=== PATIENT | male | born 1950 | race Two or more races ===

== ENCOUNTER 2023-06-17 08:53 | Emergency (ER) | payer BC, OTHER ==
[~2023-06-17] VITALS: Ht 170.2 cm; Wt 87.1 kg
[~2023-06-17 08:53] MED LIST: IBUP-2383 PO
[2023-06-17 09:00] VITALS: BP 125/72; TEMP 98.7
[2023-06-17] MEDS ORDERED: BENZONATATE 100 MG CAPSULE PO PRN (09:30)
[2023-06-17] MEDS ORDERED: BENZONATATE 100 MG CAPSULE PO ONE (09:35)
[2023-06-17] MEDS ORDERED: BENZ-13 PO (10:02)
[2023-06-17] MEDS ORDERED: ALBU6.7H9 INH (10:02)
[2023-06-17 10:11] VITALS: O2SAT 96
== END 2023-06-17 10:12 | disposition home or self-care (01) ==
LOC: ER 09:02
DX: R05.9 Cough, unspecified (principal); Z79.899 Other long term (current) drug therapy
CPT/HCPCS: 71045-TC

== ENCOUNTER 2023-10-21 14:53 | Emergency (ER) | payer BC ==
[~2023-10-21] VITALS: Ht 170.2 cm; Wt 87.5 kg
[~2023-10-21 14:53] MED LIST changes: +ALBU6.7H9 INH; +BENZ-13 PO
[2023-10-21] MEDS ORDERED: diphenhydrAMINE HCL 50 MG/ML VIAL ONE (15:24)
[2023-10-21] MEDS ORDERED: MECLIZINE HCL 25 MG TABLET ONE (15:25)
[2023-10-21] MEDS ORDERED: LORAZEPAM INJ 2 MG/ML VIAL ONE (15:25)
[2023-10-21] MEDS ORDERED: IV NS 0.9% 1,000 ML BAG IV ONE (15:30)
[2023-10-21] MEDS ORDERED: MECLIZINE HCL 12.5 MG TABLET PO ONE (15:30)
[2023-10-21] MEDS ORDERED: LORAZEPAM INJ 2 MG/ML VIAL IV ONE (15:30)
[2023-10-21] MEDS ORDERED: diphenhydrAMINE HCL 50 MG/ML VIAL IV ONE (15:30)
[2023-10-21 15:47] LABS: BASOPHILS # (AUTO) 0.1 K/uL (0.0-0.2); BASOPHILS % (AUTO) 0.9 % (0.0-2.0); EOSINOPHILS # (AUTO) 0.2 K/uL (0.0-0.7); EOSINOPHILS % (AUTO) 2.9 % (0.0-6.0); HEMATOCRIT 46 % (39-51); HEMOGLOBIN 15.4 g/dL (13.5-17.5); LYMPHOCYTES # (AUTO) 1.9 K/uL (0.8-4.8); LYMPHOCYTES % (AUTO) 25.4 % (20.0-44.0); MEAN CORPUSCULAR HEMOGLOBIN 30 PG (26.0-33.0); MEAN CORPUSCULAR HGB CONC 34 g/dl (31.0-36.0); MEAN CORPUSCULAR VOLUME 87 fL (80-96); MONOCYTES # (AUTO) 0.5 K/uL (0.1-1.30); MONOCYTES % (AUTO) 6.8 % (2.0-12.0); NEUTROPHILS # (AUTO) 4.7 K/uL (1.8-8.9); PLATELET COUNT (AUTO) 244 K/uL (150-450); RED BLOOD CELL COUNT(AUTO) 5.23 MIL/uL (4.5-6.0); RED CELL DISTRIBUTION WIDTH 13.4 % (11.5-15.0); WHITE BLOOD COUNT (AUTO) 7.4 K/uL (4.3-11.0)
[2023-10-21 16:03] LABS: CALCIUM, SERUM 9.4 mg/dL (8.5-10.1); CARBON DIOXIDE 27 mmol/L (21-32); CHLORIDE 101 mmol/L (98-107); CREATININE 1.1 mg/dL (0.6-1.3); GLUCOSE 155 mg/dL (74-106); POTASSIUM 3.5 mmol/L (3.5-5.1); SODIUM SERUM 140 mmol/L (136-145); UREA NITROGEN, BLOOD 13 mg/dL (7-18)
[2023-10-21] MEDS ORDERED: MECL-159 PO (16:47)
[2023-10-21] MEDS ORDERED: LORA-258 PO (16:47)
[2023-10-21 18:31] VITALS: BP 152/81; TEMP 98.5; O2SAT 97
== END 2023-10-21 18:00 | disposition home or self-care (01) ==
LOC: ER 14:53
DX: R42 Dizziness and giddiness (principal); Z79.899 Other long term (current) drug therapy
CPT/HCPCS: 99284; 96374; 96361; 96375; 93005; 85025; 80048; 36415; J8597; J2060; J1200; J7030